=== PATIENT | female | born 1985 | race Caucasian/White ===

== ENCOUNTER 2020-10-13 14:45 | Emergency (ER) | payer SELFPAY ==
--- NOTE | ~2020-10-13 | US_ITS ---
EXAMINATION: ULTRASOUND PELVIC, COMPLETE CLINICAL INFORMATION: Vaginal bleeding. Right adnexal pain. COMPARISON: Pelvic ultrasound December 19, 2017 TECHNIQUE: Transvaginal: Used to better visualize pelvic structures Transabdominal: Not adequate for visualization Spectral Doppler and color Doppler exam was utilized. LMP: Uncertain FINDINGS: UTERUS: Uterus is unremarkable. Uterus measures 8.6 x 4.6 x 5.5 cm. Endometrial thickness 0.2 cm ADNEXA: Ovarian vascularity:Doppler demonstrates both arterial and venous vascular flow in the right and left ovary. No evidence of ovarian torsion. Right Ovary: 1.2 cm simple cyst/follicle in the right ovary. The right ovary measures 2.6 x 2.1 x 2.3 cm. Volume 6.6 mL. Left Ovary: 1.1 cm simple cyst/follicle in the left ovary. The left ovary measures 1.7 x 2.5 x 2.1 cm. Volume 4.7 mL. Cul-de-sac: Trace fluid in the cul-de-sac. Other: There are prominent veins along the pelvic sidewall bilaterally. This is similar to prior ultrasound study of December 19, 2017. US/US pelvic and transvaginal IMPRESSION: No acute abnormality ultrasound of pelvis.
[2020-10-13 15:35] VITALS: BP 101/62; PULSE 70; RESP 16; TEMP 37.2; O2SAT 100; BMI 22.4
--- NOTE | 2020-10-13 18:44 | ED_ITS ---
HPI - Female Genitourinary General Chief complaint: Vaginal Bleeding Stated complaint: vag bleeding Source: patient Mode of arrival: ambulatory Limitations: language barrier History of Present Illness HPI Narrative: 35-year-old female presents with abnormal vaginal bleeding with large clots. She states that she has increased pelvic pain greater on the right than the left. MD elicited complaint: vaginal bleeding and pelvic pain Onset (ago): day(s) (1) Location of symptoms: vaginal Severity: moderate Female Urogenital Radiation: Non-Radiating Severity scale (1-10): 5 Quality of pain: cramping Consistency: intermittent Vaginal discharge: none Vaginal bleeding: heavy, dark red and clots Relieving factors: none Associated symptoms: abdominal pain Treatment prior to arrival: none Sexual activity: Yes Patient : No Related Data Allergies Allergy/AdvReac Type Severity Reaction Status Date / Time aspirin [ASPIRIN] Allergy Mild SWELLING Verified 10/13/20 15:41 ibuprofen [From MOTRIN] Allergy Mild RASH Verified 10/13/20 15:41 duloxetine [Cymbalta] Allergy Unknown palpitation Verified 10/13/20 15:41 s gabapentin Allergy Unknown intolerance Verified 10/13/20 15:41 Review of Systems Review of Systems: Constitutional: No Fever, No Chills ENT/Mouth: No sore throat, No Rhinorrhea Eyes: No Eye Pain, No Redness Cardiovascular: No Chest Pain, No SOB Respiratory: No Cough, No Sputum, No Wheezing Gastrointestinal: positive Nausea, No Vomiting, No Diarrhea, positive abdominal pain Genitourinary: positive irregular bleeding, No Dysuria, No Urinary Frequency, positive pelvic pain Musculoskeletal: No Myalgias Skin: No rash Neuro: No Weakness, No Headache Psych: No Anxiety/Panic, No Depression Heme/Lymph: No bruising, No Lymphadenopathy Endocrine: No Polyuria, No Polydipsia Yes all other systems are reviewed and are negative PMFSH Past Medical History Attestation statement: The following information was validated with the patient. Source: old records reviewed Medical History (Updated 10/13/20 @ 21:29 by Gianna Macario NP) No known health problems Social History Social History Advance Directives: No Advance Directives Information Provided: Yes Patient : No Physical Exam Vital Signs: Vital Signs: Last Vital Signs Temp 97.4 F 10/13/20 21:41 Pulse 74 10/13/20 21:41 Resp 16 10/13/20 21:41 BP 104/74 10/13/20 21:41 Pulse Ox 97 10/13/20 21:41 Body Mass Index 22.4 Appearance: Alert. Oriented X3. No acute distress. Eyes: Pupils equal, round and reactive to light. ENT: Pharynx normal. Neck: Normal inspection. Neck supple. CVS: Normal heart rate and rhythm. Pulses normal. Respiratory: No respiratory distress. Breath sounds normal. Abdomen: Soft and nontender. Skin: Skin warm and dry. Normal skin color. Normal skin turgor. Extremities: No lower extremity edema. Gait well belts well coordinated. Neuro: No motor deficit. No sensory deficit. Cranial nerves 2-12 intact. : General: Yes bladder normal to palpation External Female Exam: normal external appearance and normal appearance of the urethra Speculum Exam - Vagina: normal appearance of the vagina, no lacerations, vaginal bleeding and No tissue present in vagina Speculum Exam - Cervix: normal appearance of the cervix, normal palpation and No Cervical os open Bimanual exam- vagina & uterus: uterine size normal, bladder normal to palpation, normal palpation, uterine mobility normal and non-tender Bimanual Exam- Adnexa, other: no masses and tender on the right OB/external & speculum: vaginal bleeding; No no tissue noted in vagina and Cervical os open Course Course Course Narrative: 35-year-old female presents with heavy vaginal bleeding passing large blood clots about the size of an apricot. Stated that this is outside of her normal menstrual cycle, had her tubes ligated or burned in her early 20s. Reports no risk of sexually transmitted infection at this time. Pelvic exam was negative, cervical os closed without tissue, bimanual exam had some right adnexal tenderness without cervical motion or left adnexal tenderness. H&H normal, urinalysis negative. Will order pelvic ultrasound to rule out ruptured cyst, fibroid, or other acute findings. Pelvic ultrasound negative for acute findings requiring emergent intervention. Plan of care is for patient to follow-up with OBGYN as outpatient if bleeding persist. Patient verbalized understanding of and agrees to plan of care discharge home. 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 Google translate utilized for discharge instructions. MDM - Female Genitourinary Differential Diagnosis Differential diagnosis: Likely cervicitis, ovarian cyst, ruptured ovarian cyst and cystitis Medical Records Attestation: I reviewed the patient's medical records. Lab Data Attestation: I reviewed the patient's lab results. Result diagrams: 10/13/20 18:59 10/13/20 18:59 Labs: Lab Results 10/13/20 10/13/20 10/13/20 Range/Units 18:59 18:59 18:59 WBC 6.8 (4.8-10.8) X10*3/uL RBC 3.74 L (4.20-5.50) X10*6/uL Hgb 12.5 (12.0-16.0) g/dl Hct 36.1 L (37-47) % MCV 96.5 (80-98) fL MCH 33.4 H (27.0-33.0) pg MCHC 34.6 (31.0-35.0) g/dl RDW 12.0 (11.0-16.0) % Plt Count 313 (160-400) X10*3/uL MPV 9.7 (9.4-12.3) fL Immature Gran % (Auto) 0.1 (0.0-0.4) % Neut % (Auto) 57.1 (45-73) % Lymph % (Auto) 34.2 (20-40) % [place] % (Auto) 7.0 (2-11) % Eos % (Auto) 1.0 (0-4) % Baso % (Auto) 0.6 (0-2) % Lymph # (Auto) 2.3 (1.2-4.9) X10*3/uL [place] # (Auto) 0.5 (0.1-1.2) X10*3/uL Eos # (Auto) 0.1 (0.0-0.4) X10*3/uL Baso # (Auto) 0.0 (0.0-0.2) X10*3/uL Abs Immat Gran (auto) 0.01 (0.00-0.03) X10*3/uL Absolute Neuts (auto) 3.9 (2.0-8.3) X10*3/uL Absolute Nucleated RBC 0.000 (0.0-0.012) X10*3/uL Nucleated RBC % (auto) 0.0 (0.0-0.2) /100WBC Sodium 140 (135-145) mmol/L Potassium 3.6 (3.3-5.1) mmol/L Chloride 104 (96-108) mmol/L Carbon Dioxide 29 (22-29) mmol/L Anion Gap 11 L (12-20) BUN 4 L (9-16) mg/dL Creatinine 0.71 (0.5-1.4) mg/dL Estim Creat Clear Calc 99.5 Estimated GFR > 60 Random Glucose 119 H (60-115) mg/dL Calcium 9.5 (8.4-10.2) mg/dL Beta HCG, Quant < 2 mIU/mL Urine Color Urine Appearance Urine pH (5.0-8.0) Ur Specific [place] (1.005-1.025) Urine Protein (NEG-TRACE) MG/DL Urine Glucose (UA) (NEG) MG/DL Urine Ketones (NEG) MG/DL Urine Blood (NEG) Urine Nitrite (NEG) Ur Leukocyte Esterase (NEG) Urine RBC (0) /HPF Urine WBC (0-4) /HPF Ur Squamous Epith Cells /LPF Urine Bacteria /LPF 10/13/20 Range/Units 19:22 WBC (4.8-10.8) X10*3/uL RBC (4.20-5.50) X10*6/uL Hgb (12.0-16.0) g/dl Hct (37-47) % MCV (80-98) fL MCH (27.0-33.0) pg MCHC (31.0-35.0) g/dl RDW (11.0-16.0) % Plt Count (160-400) X10*3/uL MPV (9.4-12.3) fL Immature Gran % (Auto) (0.0-0.4) % Neut % (Auto) (45-73) % Lymph % (Auto) (20-40) % [place] % (Auto) (2-11) % Eos % (Auto) (0-4) % Baso % (Auto) (0-2) % Lymph # (Auto) (1.2-4.9) X10*3/uL [place] # (Auto) (0.1-1.2) X10*3/uL Eos # (Auto) (0.0-0.4) X10*3/uL Baso # (Auto) (0.0-0.2) X10*3/uL Abs Immat Gran (auto) (0.00-0.03) X10*3/uL Absolute Neuts (auto) (2.0-8.3) X10*3/uL Absolute Nucleated RBC (0.0-0.012) X10*3/uL Nucleated RBC % (auto) (0.0-0.2) /100WBC Sodium (135-145) mmol/L Potassium (3.3-5.1) mmol/L Chloride (96-108) mmol/L Carbon Dioxide (22-29) mmol/L Anion Gap (12-20) BUN (9-16) mg/dL Creatinine (0.5-1.4) mg/dL Estim Creat Clear Calc Estimated GFR Random Glucose (60-115) mg/dL Calcium (8.4-10.2) mg/dL Beta HCG, Quant mIU/mL Urine Color STRAW Urine Appearance CLEAR Urine pH 6.5 (5.0-8.0) Ur Specific [place] 1.010 (1.005-1.025) Urine Protein NEG (NEG-TRACE) MG/DL Urine Glucose (UA) NEG (NEG) MG/DL Urine Ketones NEG (NEG) MG/DL Urine Blood 3+ H (NEG) Urine Nitrite NEG (NEG) Ur Leukocyte Esterase NEG (NEG) Urine RBC 0-2 (0) /HPF Urine WBC 0 (0-4) /HPF Ur Squamous Epith Cells 1+ /LPF Urine Bacteria NONE /LPF Imaging Data Transvaginal pelvic ultrasound: Attestation: I personally reviewed and interpreted this imaging study as follows: Radiologist's impression: FINDINGS: UTERUS: Uterus is unremarkable. Uterus measures 8.6 x 4.6 x 5.5 cm. Endometrial thickness 0.2 cm ADNEXA: Ovarian vascularity:Doppler demonstrates both arterial and venous vascular flow in the right and left ovary. No evidence of ovarian torsion. Right Ovary: 1.2 cm simple cyst/follicle in the right ovary. The right ovary measures 2.6 x 2.1 x 2.3 cm. Volume 6.6 mL. Left Ovary: 1.1 cm simple cyst/follicle in the left ovary. The left ovary measures 1.7 x 2.5 x 2.1 cm. Volume 4.7 mL. Cul-de-sac: Trace fluid in the cul-de-sac. Other: There are prominent veins along the pelvic sidewall bilaterally. This is similar to prior ultrasound study of December 19, 2017. US/US pelvic and transvaginal IMPRESSION: No acute abnormality ultrasound of pelvis. Discharge Plan Discharge Clinical Impression: Vaginal bleeding Patient Disposition: Home, Self-Care Instructions: Dysfunctional Uterine Bleeding (ED) Additional Instructions: Evalu? el sangrado vaginal anormal. [place] examen p?lvico fue normal. [place] ecograf?a p?lvica fue normal. Sandy un seguimiento con trujillo obstetra. Camille valores de laboratorio son normales. [place] prueba de embarazo fue negativa. Sandrita por elegir karla departamento de emergencias para trujillo evaluaci?n. Sandy un seguimiento con trujillo m?dico de atenci?n primaria seg?n sea necesario. Regrese al departamento de emergencias por cualquier s?ntoma nuevo, preocupante o que empeore. You evaluated for abnormal vaginal bleeding. Your pelvic exam was normal. Your pelvic ultrasound was normal. Please follow-up with OBGYN. Your lab values are normal. Her test was negative. Thank you for choosing this emergency department for evaluation. Please follow-up with primary care physician as needed. Return to the emergency department for any new, concerning, or worsening symptoms. Referrals: Diego Mendez MD [Physician] - 2 days (Abnormal uterine bleeding) Interventions: ED Discharge Assessment Last Done: 10/13/20 21:40 Discharge Date/Time: 10/13/20 21:42
[2020-10-13 19:17] LABS: MANUAL DIFF FLAG NO
[2020-10-13 19:20] LABS: Basophils Percent Auto 0.6 % (0-2); Eosinophils Absolute Auto 0.1 X10*3/uL (0.0-0.4); Hematocrit 36.1 % (37-47); Hemoglobin 12.5 g/dl (12.0-16.0); Imm Gran Abs Auto 0.01 X10*3/uL (0.00-0.03); Imm Gran Pct Auto 0.1 % (0.0-0.4); Lymphocytes Absolute Auto 2.3 X10*3/uL (1.2-4.9); Lymphocytes Percent Auto 34.2 % (20-40); Mean Corpuscular HGB Conc 34.6 g/dl (31.0-35.0); Mean Corpuscular Hemoglobin 33.4 pg (27.0-33.0); Mean Corpuscular Volume 96.5 fL (80-98); Mean Platelet Volume 9.7 fL (9.4-12.3); Monocytes Absolute Auto 0.5 X10*3/uL (0.1-1.2); Neutrophils Absolute Auto 3.9 X10*3/uL (2.0-8.3); Neutrophils Percent Auto 57.1 % (45-73); Platelet Count 313 X10*3/uL (160-400); Red Blood Count 3.74 X10*6/uL (4.20-5.50); White Blood Count 6.8 X10*3/uL (4.8-10.8)
[2020-10-13] MEDS: 0.9 % Sodium Chloride 1,000 ML 999 ML IVCONT (19:22)
[2020-10-13 19:28] LABS: Glucose Urine UA NEG (NEG); Leukocyte Esterase Urine NEG (NEG); Nitrite Urine NEG (NEG); PH 6.5 (5.0-8.0); UACC Culture Trigger NO; Urine Blood 3+ (NEG); Urine Ketones NEG (NEG); Urine Protein NEG (NEG-TRACE)
[2020-10-13 19:29] LABS: Appearance Urine CLEAR; Color Urine STRAW
[2020-10-13 19:37] LABS: RBC Urine 0-2 /HPF (0); Squamous Epithelial Cell Urine 1+ /LPF; WBC Urine 0 /HPF (0-4)
[2020-10-13 19:51] LABS: Anion Gap 11 (12-20); Blood Urea Nitrogen 4 mg/dL (9-16); Calcium 9.5 mg/dL (8.4-10.2); Carbon Dioxide 29 mmol/L (22-29); Chloride 104 mmol/L (96-108); Creatinine Clr Calc Pharmacy 99.5; Estimated Glomerular Filt Rate > 60; Glucose Random 119 mg/dL (60-115); Potassium 3.6 mmol/L (3.3-5.1); Sodium 140 mmol/L (135-145)
[2020-10-13 19:57] LABS: HCG Quantitative < 2 mIU/mL
[2020-10-13 20:00] VITALS: BP 98/37; PULSE 64; RESP 16; TEMP 36.7; O2SAT 100
[2020-10-13 21:41] VITALS: BP 104/74; PULSE 74; RESP 16; TEMP 36.3; O2SAT 97
== END 2020-10-13 21:42 | disposition home or self-care (01) ==
PROVIDERS: Nurse Practitioner Family; Emergency Provider Emergency Medicine; PCP Emergency Medicine
DX: N93.9 Abnormal uterine and vaginal bleeding, unspecified (principal); R10.2 Pelvic and perineal pain
CPT/HCPCS: 36415; 76830; 76856; 80048; 81001; 84702; 85025; 96360; 99284